=== PATIENT | male | born 1985 | race Two or more races ===

== ENCOUNTER 2024-11-13 05:29 | Emergency (ER) | payer MEDICAID, OTHER ==
[~2024-11-13] VITALS: Ht 180.3 cm; Wt 95.6 kg
[2024-11-13 05:37] VITALS: BP 131/98; PULSE 81; RESP 18; O2SAT 96
[2024-11-13] MEDS ORDERED: SODIUM CHLORIDE 0.9% 1,000 ML IV ONE (07:30)
[2024-11-13 08:25] LABS: Urine Bacteria MANY /hpf (None Seen); Urine Blood 3+ /uL (Negative); Urine Clarity Turbid (Clear); Urine Color Light-Orange (Yellow); Urine Mucus FEW (None Seen); Urine Protein, UAD 1+ (Negative); Urine Specific Gravity 1.028 (1.001-1.035); Urine Squamous Epithelial Cell None Seen /hpf (<5); Urine Urobilinogen Normal (Negative); Urine WBC 24 /hpf (0 - 3); Urine pH 5.5 (5.0-9.0)
== END 2024-11-13 08:42 | disposition left against medical advice (07) ==
LOC: ER 05:29
DX: R31.9 Hematuria, unspecified (principal); Z53.21 Procedure and treatment not carried out due to patient leaving prior to being seen by health care provider
CPT/HCPCS: 81001

== ENCOUNTER 2025-01-15 18:33 | Emergency (ER) | payer SELFPAY ==
[~2025-01-15] VITALS: Ht 180.3 cm; Wt 96.6 kg
[2025-01-15 20:14] VITALS: BP 137/84; TEMP 98.3
[2025-01-15] MEDS: IBUPROFEN 800 MG TAB PO ONE (20:18)
[2025-01-15 20:21] VITALS: PULSE 68; RESP 16; O2SAT 98
--- NOTE | 2025-01-15 21:20 | DVH ---
CLINICAL INDICATION: Pain/swelling TECHNIQUE: XY R KNEE 3V XRAY Comparison: None FINDINGS: Evidence of small joint effusion. No fracture or dislocation. Mild medial joint space narrowing. IMPRESSION: 1. No evidence of fracture or dislocation.
[2025-01-15] MEDS ORDERED: IBUP-1455 PO (21:47)
[2025-01-15] MEDS ORDERED: ACET500T58 PO (21:47)
--- NOTE | 2025-01-15 21:47 | ED.PDOC ---
Musculoskeletal HPI Comments This patient is a 39-year-old male who arrives to the ED today with complaints of right knee pain and swelling concerns for the past several days. Patient recently started to construction job and states that subsequent to starting the job, he started having knee pain concerns. Patient denies any traumatic events. Vital signs were stable on arrival. Chief Complaint: Lower Extremity Time Seen by MD: 19:38 Primary Care Provider: NONE Reviewed Notes: Nurses Notes Allergies: Coded Allergies: NO KNOWN ALLERGIES (Unverified , 11/13/24) Information Source: Patient Mode of Arrival: Ambulatory Location: Right Extremity Location: Knee Timing: Days Prehospital treatment: None Severity: Moderate Able to Move Extremity: Yes Bear Weight: Fully Pain: Moderate Hand Dominance: Right Mechanism: Spontaneous Circumstances: Spontaneous Onset of Symptoms: Spontaneous Symptoms: Swelling, Pain DVT Risk Factors: NONE Past Medical History PAST MEDICAL HISTORY: Denies Surgical History: Denies all surgeries Family History Family History: Reviewed,noncontributory to illness, No family hx of Cancer, No family hx of DM, No family hx of Heart janak, No family hx of HTN, No family hx ofKidney ajnak, No family hx of Liver janak, No family hx of Lung janak, No family hx of Stroke Social History Smoker: Non-Smoker Alcohol: Denies ETOH Use Drugs: Denies Drug Use Lives In: Home Constitutional: denies: chills, diaphoresis, fatigue, fever, malaise, sweats, weakness, others EENTM: denies: blurred vision, double vision, ear bleeding, ear discharge, ear drainage, ear pain, ear ringing, eye pain, eye redness, hearing loss, mouth pain, mouth swelling, nasal discharge, nose bleeding, nose congestion, nose pain, photophobia, tearing, throat pain, throat swelling, voice changes, others Respiratory: denies: cough, hemoptysis, orthopnea, SOB at rest, shortness of breath, SOB with excertion, stridor, wheezing, others Cardiovascular: denies: chest pain, dizzy spells, diaphoresis, Dyspnea on exertion, edema, irregular heart beat, left arm pain, lightheadedness, palpitations, PND, syncope, others Gastrointestinal: denies: abdomen distended, abdominal pain, blood streaked bowels, constipated, diarrhea, dysphagia, difficulty swallowing, hematemesis, melena, nausea, poor appetite, poor fluid intake, rectal bleeding, rectal pain, vomiting, others Genitourinary: denies: burning, dysuria, flank pain, frequency, hematuria, incontinence, penile discharge, penile sore, pain, testicle pain, testicle swelling, urgency, others Neurological: denies: dizziness, fainting, headache, left sided numbness, left sided weakness, numbness, paresthesia, pre-existing deficit, right sided numbness, right sided weakness, seizure, speech problems, tingling, tremors, weakness, others Musculoskeletal: reports: others (Right knee pain and swelling); denies: back pain, gout, joint pain, joint swelling, muscle pain, muscle stiffness, neck pain Integumetry: denies: bruises, change in color, change in hair/nails, dryness, laceration, lesions, lumps, rash, wounds, others Allergic/Immunocompromised: denies: Difficulty Healing, Frequent Infections, Hives, Itching, others Hematologic/Lymphatic: denies: anemia, blood clots, easy bleeding, easy bruising, swollen glands, others Endocrine: denies: excessive hunger, excessive sweating, excessive thirst, excessive urination, flushing, intolerance to cold, intolerance to heat, unexplained weight gain, unexplained weight loss, others Psychiatric: denies: anxiety, bipolar disorder, depression, hopeless, panic disorder, schizophrenia, sleepless, suicidal, others Physical Exam General Appearance: Moderate Distress ( [id number] distress due to right knee pain concerns.), Normal HEENT: Normal ENT Inspection, Pharynx Normal, TMs Normal Neck: Full Range of Motion, Non-Tender, Normal, Normal Inspection Respiratory: Chest Non-Tender, Lungs Clear, No Accessory Muscle Use, No Respiratory Distress, Normal Breath Sounds Cardiovascular: No Edema, No JVD, No Murmur, No Gallop, Normal Peripheral Pulses, Regular Rate/Rhythm Breast Exam: Deferred Gastrointestinal: No Organomegaly, Non Tender, No Pulsatile Mass, Normal Bowel Sounds, Soft Genitalia: Deferred Pelvic: Deferred Rectal: Deferred Extremities: Other ( right knee is diffusely tender to palpation throughout the tibial tuberosity region extending superiorly towards the knee and surrounding areas. Some mild erythema without any discernible edema. Possible joint effusion appreciated. No drawer sign.) Neurologic: Alert, No Motor Deficits, Normal Affect, Normal Mood, No Sensory Deficits Cerebellar Function: Normal Reflexes: Normal Skin: Dry, Normal Color, Warm Lymphatic: No Adenopathy Was a procedure done? Was a procedure done?: No Differential Diagnosis EXT Differential Diagnosis: Fracture, Sprain, Strain X-Ray, Labs, Meds, VS Vital Signs Date Time Temp Pulse Resp B/P (MAP) Pulse Ox O2 Delivery O2 Flow Rate FiO2 01/15/25 20:21 68 16 98 Room Air* 0 21 01/15/25 20:14 98.3 90 16 137/84 (101) 97 98.3 01/15/25 19:18 99.1 101 17 140/84 (102) 98 Current Medications Medications (Trade) Dose Ordered Sig/Donald Route Start Time Stop Time Status Last Admin Ibuprofen (Motrin Tablet) 800 mg ONCE ONCE PO 01/15/25 20:00 01/15/25 20:01 DC 01/15/25 20:18 X-Ray, Labs, Meds, VS Comment All studies performed the ED were evaluated by me personally. Imaging studies were unremarkable for any acute fractures. Mild effusion noted. Advised patient that it may be having some overuse of that knee. Patient will be provided with a an Jaylen wrap. Advised limiting too much activity of the knee. Time of 1ST Reevaluation: 21:45 Reevaluation 1ST: Improved Consultation: PCP Patient Education/Counseling: Diagnosis, Treatment Family Education/Counseling: Diagnosis, Treatment Departure 1 Departure Time of Disposition: 21:45 Impression: Primary Impression: Effusion, right knee Disposition: HOME / SELF CARE / HOMELESS Condition: Stable Additional Instructions: Advised patient utilize anti-inflammatory as directed as well as the Jaylen wrap as long as it aids in the healing process. Ice therapy as well. e-Prescriptions Acetaminophen (Acetaminophen) 500 Mg Tab 500 MG PO Q4HP PRN, #30 TAB Prov: JOSEF GARCIA PAC 01/15/25 Ibuprofen Micronized (Ibuprofen) 800 Mg Tab 800 MG PO Q8HP PRN, #20 TAB Prov: JOSEF GARCIA PAC 01/15/25 Discharged With: Self, Friend Critical Care Note Critical Care Time?: No Stability Stability form required: No Heart Score Heart Score: Heart Score Response (Comments) Value History N/A 0 EKG N/A 0 Age N/A 0 Risk Factors N/A 0 Troponin N/A 0 Total 0 JOSEF GARCIA PAC Jan 15, 2025 21:47
== END 2025-01-15 22:02 | disposition home or self-care (01) ==
LOC: ER 18:33
DX: M25.461 Effusion, right knee (principal)
CPT/HCPCS: 73562